=== PATIENT | male | born 1975 ===

== ENCOUNTER 2017-05-27 12:40 | Emergency (ER) | payer OTHER ==
[2017-05-27 12:40] VITALS: BMI 25.7
[2017-05-27 12:51] VITALS: RESP 18
--- NOTE | 2017-05-27 13:35 | C.PDOC ---
History Of Present Illness 42 year old male presents to the ED complaining of left leg pain for 4 days. Pain starts at the knee and radiates down his leg. Patient also noticed swelling to the left side of his left knee. Pain worsens with walking. Denies injury or trauma to the area. Patient was seen at clinic today, had blood work and was sent here for x-ray and venous Doppler study. Patient has a past medical history of DVT in 2012 which was treated. He denies any chest pain, shortness of breath, or numbness. Time Seen by Provider: 05/27/17 12:53 Chief Complaint (Nursing): Lower Extremity Problem/Injury History Per: Patient History/Exam Limitations: no limitations Onset/Duration Of Symptoms: Days (x4) Current Symptoms Are (Timing): Still Present Past Medical History Reviewed: Historical Data, Nursing Documentation, Vital Signs Vital Signs: Last Vital Signs Temp 98.7 F 05/27/17 15:13 Pulse 68 05/27/17 15:13 Resp 18 05/27/17 15:13 BP 109/58 L 05/27/17 15:13 Pulse Ox 100 05/27/17 15:13 - Medical History PMH: No Chronic Diseases, Deep Vein Thrombosis (treated in 2011) Surgical History: Hernia Repair Family History: States: No Known Family Hx - Social History Hx Alcohol Use: No Hx Substance Use: No - Immunization History Hx Tetanus Toxoid Vaccination: No Hx Influenza Vaccination: No Hx Pneumococcal Vaccination: No Review Of Systems Cardiovascular: Negative for: Chest Pain Respiratory: Negative for: Shortness of Breath Musculoskeletal: Positive for: Leg Pain (left knee radiating down leg) Neurological: Negative for: Numbness Physical Exam - Physical Exam Appears: Well, Non-toxic, No Acute Distress Skin: Warm, Dry, No Rash Head: Atraumatic, Normacephalic Eye(s): bilateral: Normal Inspection Extremity: No Calf Tenderness, Swelling (Mild swelling to left anterior knee and medial aspect of left knee), Other (Pain on flexion. Negative Homans sign) Neurological/Psych: Oriented x3, Normal Speech, No Other (focal deficits) ED Course And Treatment O2 Sat by Pulse Oximetry: 99 (RA) Pulse Ox Interpretation: Normal Medical Decision Making Medical Decision Making: Impression: Left leg pain, rule out DVT Plan: * X-ray of left knee * Venous Duplex Scan (left lower extremity) Ultrasound is negative for DVT. Discussed findings with patient in detail. Patient feels comfortable going home and will be discharged. Patient given follow up instructions. Instructed to return to ER if symptoms worsen or new symptoms arise. Disposition Counseled Patient/Family Regarding: Diagnosis, Need For Followup - Disposition Disposition: HOME/ ROUTINE Disposition Time: 15:10 Condition: STABLE Additional Instructions: Your xray and doppler study were normal. No blood clot Please follow up in the clinic as scheduled for further evaluation Take pain medicine as needed Return to the emergency department at any time if symptoms persist or worsen. Instructions: Muscle Strain (DC) Forms: [employer] (Upper Sorbian) - POA Present On Arrival: None - Clinical Impression Clinical Impression: Left leg pain, Muscle strain, lower leg - PA / ACCOUNT INFORMATION CLERK / Resident Statement MD/DO has reviewed & agrees with the documentation as recorded. - Scribe Statement The provider has reviewed the documentation as recorded by the Scribe (Eryn Delgado) All medical record entries made by the Scribe were at my direction and personally dictated by me. I have reviewed the chart and agree that the record accurately reflects my personal performance of the history, physical exam, medical decision making, and the department course for this patient. I have also personally directed, reviewed, and agree with the discharge instructions and disposition.
[2017-05-27 15:14] VITALS: BP 109/58; PULSE 68; TEMP 98.7
[2017-05-27 16:22] VITALS: O2SAT 99
--- NOTE | 2017-05-27 16:25 | RAD ---
PROCEDURE: Left Knee Radiographs. HISTORY: Pain. COMPARISON: None. FINDINGS: BONES: Normal. No fracture. JOINTS: Normal. No osteoarthritis. JOINT EFFUSION: None. OTHER FINDINGS: None. IMPRESSION: Normal radiographs of the left knee.
--- NOTE | 2017-05-28 09:19 | VASCLAB ---
PROCEDURE: Left Lower Extremity Venous Duplex Exam. HISTORY: LEFT LEG PAIN PRIORS: None. TECHNIQUE: Left common femoral, femoral, popliteal and posterior tibial, peroneal and great saphenous veins were evaluated. Flow was assessed with color Doppler, compressibility, assessment of phasic flow and augmentation response. Report prepared by ITZEL Chaudhry, RVT FINDINGS: LEFT: 1. Common Femoral Vein: 1.1. Compressibility - Fully compressible: Thrombus - None : Flow - Phasic: Augmentation -Normal: Reflux - None. 2. Femoral Vein: 2.1. Compressibility - Fully compressible: Thrombus - None: Flow - Phasic: Augmentation -Normal: Reflux - None. 3. Popliteal Vein: 3.1. Compressibility - Fully compressible: Thrombus - None: Flow - Phasic: Augmentation -Normal: Reflux - None. 4. Posterior Tibial Vein: 4.1. Compressibility - Fully compressible: Thrombus - None: Flow - Phasic: Augmentation -Normal: Reflux - None. 5. Peroneal Vein: 5.1. Compressibility - Fully compressible: Thrombus - None: Flow - Phasic: Augmentation -Normal: Reflux - None. 6. Great Saphenous Vein: 6.1. Compressibility - Fully compressible: Thrombus - None: Flow - Phasic: Augmentation - Normal: Reflux - None. OTHER FINDINGS: IMPRESSION: No evidence of deep or superficial vein thrombosis of the left lower extremity with excellent venous flow. Normal valve function noted of the left side. Normal venous flow noted in the right common femoral vein.
== END 2017-05-27 15:14 | disposition home or self-care (01) ==
LOC: C.ER 12:40
DX: M79.605 Pain in left leg (principal); S86.912A Strain of unspecified muscle(s) and tendon(s) at lower leg level, left leg, initial encounter; X58.XXXA Exposure to other specified factors, initial encounter